=== PATIENT | female | born 1955 | race Two or more races ===

== ENCOUNTER 2022-01-31 17:37 | Emergency (ER) | payer BC, OTHER ==
[~2022-01-31] VITALS: Ht 157.5 cm; Wt 77.0 kg
[2022-01-31] MEDS ORDERED: KETOROLAC TROMETH 60MG/2ML VIAL IM ONE (18:30)
[2022-01-31] MEDS ORDERED: ONDANSETRON ODT 4 MG TAB PO ONE (18:30)
[2022-01-31 18:46] LABS: Basophils # (auto) 0.1 10 ^3/uL (0-0.2); Basophils % (auto) 0.9 % (0.0-2.0); Eosinophils # (auto) 0.1 10 ^3/uL (0-0.8); Eosinophils % (auto) 1.2 % (0.0-7.0); Hematocrit 45.8 % (36.0-46.0); Hemoglobin 15.3 g/dL (12.2-16.2); Lymphocytes # (auto) 2.2 10 ^3/uL (0.4-5.4); Lymphocytes % (auto) 19.9 % (10.0-50.0); Mean Corpuscular Hemoglobin 29.8 pg (28.0-32.0); Mean Corpuscular Hgb Conc. 33.3 g/dL (32.0-36.0); Mean Corpuscular Volume 89.3 fL (80.0-100.0); Monocytes # (auto) 0.5 10 ^3/uL (0-1.3); Monocytes % (auto) 4.8 % (0.0-12.0); Neutrophils # (auto) 8.1 10 ^3/uL (1.6-8.6); Neutrophils % (auto) 73.2 % (37.0-80.0); Red Blood Cells 5.12 10^6/uL (4.0-5.20); Red Cell Distribution Width 13.3 % (11.8-14.3); White Blood Cell 11.1 10^3/uL (4.4-10.8)
[2022-01-31 18:47] LABS: Urine Bacteria NONE SEEN /hpf (None Seen); Urine Blood 2+ /uL (Negative); Urine Specific Gravity 1.022 (1.001-1.035); Urine WBC 27 /hpf (0 - 5)
[2022-01-31 19:04] LABS: BUN/Creatinine Ratio 17.5; Calcium 9.3 mg/dL (8.5-10.1); Potassium 3.9 mmol/L (3.5-5.1)
[2022-01-31 19:07] LABS: Bilirubin, Total 0.3 mg/dL (0.2-1.0); Total Protein 8.2 g/dL (6.4-8.2)
[2022-01-31] MEDS ORDERED: ONDA-144 PO (19:26)
[2022-01-31] MEDS ORDERED: IBUP800T27 PO (19:26)
[2022-01-31] MEDS ORDERED: CEPH-510 PO (19:26)
[2022-01-31 20:45] VITALS: BP 151/99
== END 2022-01-31 20:59 | disposition home or self-care (01) ==
LOC: ER 17:44
DX: N20.0 Calculus of kidney (principal)
CPT/HCPCS: 36415; 74176; 80053; 81001; 85025

== ENCOUNTER 2024-10-22 18:40 | Emergency (ER) | payer OTHER ==
[~2024-10-22] VITALS: Ht 157.5 cm; Wt 80.9 kg
[~2024-10-22 18:40] MED LIST: CEPH-510 PO; IBUP-1456 PO; ONDA-144 PO
[2024-10-22 19:44] LABS: Hematocrit 44.8 % (36.0-46.0); Hemoglobin 15.4 g/dL (12.2-16.2); Mean Corpuscular Hemoglobin 30.5 pg (28.0-32.0); Mean Corpuscular Volume 88.6 fL (80.0-100.0); Nucleated Red Blood Cells % 0.0 %
[2024-10-22 19:45] VITALS: BP 125/86; RESP 18; TEMP 98.2; O2SAT 95
[2024-10-22 20:00] VITALS: PULSE 102
--- NOTE | 2024-10-22 20:00 | ED.PDOC ---
History of Present Illness HPI Comments 68 y/o obese F presents with c/c generalized weakness, dizziness, nausea, and fever. Patient reports ongoing symptoms following unprovoked, atraumatic, and sudden onset, yesterday, at around 1430. No recent travel, previous ailments, or sick contact endorsed. Significant history of DM II, HLD, and HTN. Patient denies on having any chest pain, shortness of breath, headache, nausea, vomiting, diarrhea, or further associated symptoms. Chief Complaint: General Weakness Time Seen by MD: 19:20 Reviewed Notes: Nurses Notes, Medications, Allergies Allergies: Coded Allergies: NO KNOWN ALLERGIES (Unverified , 01/31/22) Home Meds Active Scripts Ondansetron (Zofran) 4 Mg Tab, 4 MG PO Q6HP PRN, #20 MG Prov:ELIANE HERNANDEZ DO 01/31/22 Ibuprofen (Ibuprofen) 800 Mg Tab, 800 MG PO Q8HPRN PRN, #30 MG Prov:ELIANE HERNANDEZ DO 01/31/22 Cephalexin ( Keflex 500) 500 Mg Cap, 2 CAP PO BID for 5 Days, #20 CAP Prov:ELIANE HERNANDEZ DO 01/31/22 Information Source: Patient Mode of Arrival: Wheelchair Severity: Moderate Timing: Days Duration: Since onset Prehospital treatment: None Past Medical History PAST MEDICAL HISTORY: DM (Type II - on Metformin ), High Lipids, HTN, Kidney Stones All Other Systems: Reviewed and Negative (Comprehensive systems review obtained and negative except for what is stated in the HPI.) Physical Exam General Appearance: No Apparent Distress, Obese HEENT: Normal ENT Inspection, Pharynx Normal, TMs Normal Neck: Full Range of Motion, Non-Tender, Normal, Normal Inspection Respiratory: Chest Non-Tender, Lungs Clear, No Accessory Muscle Use, No Respiratory Distress, Normal Breath Sounds Cardiovascular: No Edema, No JVD, No Murmur, No Gallop, Normal Peripheral Pulses, Regular Rate/Rhythm Breast Exam: Deferred Gastrointestinal: No Organomegaly, Non Tender, No Pulsatile Mass, Normal Bowel Sounds, Soft Genitalia: Deferred Pelvic: Deferred Rectal: Deferred Extremities: No calf tenderness, Normal capillary refill, Normal inspection, Normal range of motion, Non-tender, No pedal edema Musculoskeletal : Apperance: Normal Neurologic: Alert, virtualization consultant II-XII nml as Tested, No Motor Deficits, Normal Affect, Normal Mood, No Sensory Deficits, Other (No focal deficits ) Cerebellar Function: Normal Reflexes: Normal Skin: Dry, Normal Color, Warm Lymphatic: No Adenopathy Was a procedure done? Was a procedure done?: No EKG EKG : Pulse Rate (adult): 102 [place]: Normal Cardiac Rhythm: ST Block: None Hypertrophy: None ST: Normal Differential Dx Considerations may include: Dehydration, electrolyte imbalance, viral syndrome, hypoglycemia, hypotension, acute vertigo, arrhythmia, among others X-Ray, Labs, Meds, VS Vital Signs Date Time Temp Pulse Resp B/P (MAP) Pulse Ox O2 Delivery O2 Flow Rate FiO2 10/22/24 20:00 102 10/22/24 19:49 102 10/22/24 19:45 98.2 105 18 125/86 (99) 95 98.2 Lab Test 10/22/24 20:39 10/22/24 19:46 10/22/24 19:40 10/22/24 19:34 Range/Units Lactic Acid Level 1.9 0.4-2.0 mmol/L Troponin I High Sensitivity < 3 L < 3 L </=34 ng/L POC Glucose 148 H 70-106 mg/dl Urine Color Yellow Yellow Urine Clarity Clear Clear Urine pH 6.0 5.0-9.0 Urine Specific [place] 1.017 1.001-1.035 Urine Protein Negative Negative Urine Ketones Trace Negative Urine Blood 1+ H Negative /uL Urine Nitrite Negative Negative Urine Bilirubin Negative Negative Urine Urobilinogen Normal Negative mg/dL Urine Leukocyte Esterase Negative Negative /uL Urine RBC 13 0 - 4 /hpf Urine Microscopic WBC 1 0-5 /HPF Urine Squamous Epithelial Cells Few <5 /hpf Urine Bacteria None seen None Seen /hpf Urine Mucus Few None Seen Urine Glucose Normal Normal mg/dL White Blood Count 8.7 4.4-10.8 10^3/uL Red Blood Count 5.06 4.0-5.20 10^6/uL Hemoglobin 15.4 12.2-16.2 g/dL Hematocrit 44.8 36.0-46.0 % Mean Corpuscular Volume 88.6 80.0-100.0 fL Mean Corpuscular Hemoglobin 30.5 28.0-32.0 pg Mean Corpuscular Hemoglobin Concent 34.4 32.0-36.0 g/dL Red Cell Distribution Width 13.7 11.8-14.3 % Platelet Count 188 140-450 10^3/uL Mean Platelet Volume 7.6 6.9-10.8 fL Neutrophils (%) (Auto) 80.5 H 37.0-80.0 % Lymphocytes (%) (Auto) 7.1 L 10.0-50.0 % Monocytes (%) (Auto) 11.8 0.0-12.0 % Eosinophils (%) (Auto) 0.1 0.0-7.0 % Basophils (%) (Auto) 0.5 0.0-2.0 % Neutrophils # (Auto) 7.0 1.6-8.6 10 ^3/uL Lymphocytes # (Auto) 0.6 0.4-5.4 10 ^3/uL Monocytes # (Auto) 1.0 0-1.3 10 ^3/uL Eosinophils # (Auto) 0 0-0.8 10 ^3/uL Basophils # (Auto) 0 0-0.2 10 ^3/uL Nucleated Red Blood Cells 0.0 % D-Dimer, Quantitative 0.22 0.0-0.49 mg/L FEU Sodium Level 133 L 136-145 mmol/L Potassium Level 4.0 3.5-5.1 mmol/L Chloride Level 95 L 98-107 mmol/L Carbon Dioxide Level 26 20-31 mmol/L Anion Gap 12 5-15 Blood Urea Nitrogen 10 9-23 mg/dL Creatinine 0.88 0.550-1.02 mg/dL Glomerular Filtration Rate Calc 71 >90 mL/min BUN/Creatinine Ratio 11.4 10.0-20.0 Serum Glucose 134 H 74-106 mg/dL Calcium Level 10.7 H 8.7-10.4 mg/dL Magnesium Level 1.7 1.6-2.6 mg/dL Total Bilirubin 0.8 0.2-1.0 mg/dL Aspartate Amino Transferase (AST) 64 H 13-40 U/L Alanine Aminotransferase (ALT) 73 H 7-40 U/L Alkaline Phosphatase 56 46-116 U/L B-Type Natriuretic Peptide 12.40 0-100 pg/mL Total Protein 8.5 H 5.7-8.2 g/dL Albumin 5.6 H 3.2-4.8 g/dL Time of 1ST Reevaluation: 19:50 Reevaluation 1ST: Unchanged Patient Education/Counseling: Diagnosis, Treatment Family Education/Counseling: No Family Present SEPSIS Sepsis Screen Date sepsis recognized/suspect: Oct 22, 2024 Time Sepsis recognized/suspect: 1929 Recent Procedure: No On Antibiotic Therapy: No Respiratory Rate >20: No Heart Rate >90: Yes Temp<36 C (96.8 F) or >38.3 C: No SBP <90 or MAP <65 mmHG: No New Acute Mental Status Change: No Is the patient on CPAP, BIPAP,: No Physician Orders Electrocardigram (10/22/24 19:24) Blood Culture (10/22/24 19:51) Covid19 Antigen Maryellen (10/22/24 ) Rapid Influenza A&B (10/22/24 19:51) Vital Signs Date Time Temp Pulse Resp B/P (MAP) Pulse Ox O2 Delivery O2 Flow Rate FiO2 10/22/24 20:00 102 10/22/24 19:49 102 10/22/24 19:45 98.2 105 18 125/86 (99) 95 98.2 Laboratory Tests Test 10/22/24 19:34 10/22/24 20:39 White Blood Count 8.7 10^3/uL (4.4-10.8) Lactic Acid Level 1.9 mmol/L (0.4-2.0) Departure 1 Departure Time of Disposition: 02:30 Impression: Primary Impression: Generalized weakness Disposition: 01 HOME / SELF CARE / HOMELESS Condition: Stable Discharged With: Self Critical Care Note Critical Care Time?: No Stability Stability form required: No Heart Score Heart Score: Heart Score Response (Comments) Value History N/A 0 EKG N/A 0 Age N/A 0 Risk Factors N/A 0 Troponin N/A 0 Total 0 I personally scribed for NI RUIZ MD ([email or web address]) on 10/22/24 at 20:00. Electronically submitted by Dwight Jolly ([email or web address]). NI RUIZ MD Oct 22, 2024 20:00
[2024-10-22 20:01] LABS: Alkaline Phosphatase 56 U/L (46-116); Anion Gap 12 (5-15); BUN/Creatinine Ratio 11.4 (10.0-20.0); Blood Urea Nitrogen 10 mg/dL (9-23); Carbon Dioxide 26 mmol/L (20-31); Magnesium 1.7 mg/dL (1.6-2.6); Potassium 4.0 mmol/L (3.5-5.1)
[2024-10-22 20:02] LABS: Bilirubin, Total 0.8 mg/dL (0.2-1.0)
[2024-10-22 20:03] LABS: Alanine Aminotransferase 73 U/L (7-40); Albumin 5.6 g/dL (3.2-4.8); Calcium 10.7 mg/dL (8.7-10.4); Chloride 95 mmol/L (98-107); Glucose 134 mg/dL (74-106); Sodium 133 mmol/L (136-145); Total Protein 8.5 g/dL (5.7-8.2)
[2024-10-22 20:42] LABS: Urine Protein, UAD Negative (Negative)
--- NOTE | 2024-10-25 06:29 | ECG ---
[facility] Test Date: 2024-10-22 Test Time: 19:49:32 Pat Name: PARISH ARCEO Department: [facility] ED Patient ID: [facility]-[id number] Room: Gender: F Metal Neutralizer: GILMA : 1955 Requested By: NI RUIZ Order Number: [id number] Reading MD: Karsten Arredondo Measurements Intervals [place] Rate: 102 P: 48 TN: 139 QRS: 50 QRSD: 80 T: 59 QT: 325 QTc: 424 Interpretive Statements Sinus tachycardia Borderline low voltage, extremity leads Electronically Signed On 10-25-2024 11:18:17 PDT by Karsten Arredondo Please click the below link to view image of tracing.
== END 2024-10-23 02:33 | disposition home or self-care (01) ==
LOC: ER 18:40
DX: R53.1 Weakness (principal); E11.9 Type 2 diabetes mellitus without complications; I10 Essential (primary) hypertension; E78.5 Hyperlipidemia, unspecified; E66.9 Obesity, unspecified; Z87.440 Personal history of urinary (tract) infections; Z68.32 Body mass index [BMI] 32.0-32.9, adult
CPT/HCPCS: 36415; 80053; 81001; 82947; 82962; 83605; 83735; 83880; 84484; 85025; 85379; 87040; 93005